=== PATIENT | female | born 1955 | race Caucasian/White ===

== ENCOUNTER 2022-05-22 07:30 | Inpatient (IN) | payer BC ==
[2022-05-21 12:57] LABS: BASOPHILS % (AUTO) 0.2 % (0.0-5.0); EOSINOPHILS % (AUTO) 1.3 % (0.0-8.0); HEMATOCRIT 43.3 % (36-48); LYMPHOCYTES % (AUTO) 27.7 % (21.0-51.0); MEAN CORPUSCULAR HEMOGLOBIN 27.2 pg (27.0-33.0); MEAN CORPUSCULAR HGB CONC 31.6 g/dL (32.0-36.0); MEAN CORPUSCULAR VOLUME 85.9 fL (79-99); MONOCYTES % (AUTO) 6.4 % (3.0-13.0); NEUTROPHILS % (AUTO) 64.1 % (40.0-77.0); PLATELET COUNT (AUTO) 166 K/uL (130-400); RED BLOOD CELL COUNT(AUTO) 5.04 MIL/uL (4.00-5.50); RED CELL DISTRIBUTION WIDTH 14.6 % (11.0-15.5); WHITE BLOOD COUNT (AUTO) 10.6 K/uL (4.8-10.8)
[2022-05-21 13:08] LABS: INR 1.23 (0.85-1.15); PROTHROMBIN TIME 13.3 SEC (9.6-11.6)
[2022-05-21 13:09] LABS: CREATININE 0.9 mg/dL (0.5-1.5); POTASSIUM 4.4 mmol/L (3.5-5.1)
[2022-05-21 13:10] LABS: PARTIAL THROMBOPLASTIN TIME 29.3 SEC (26.3-35.5)
[2022-05-22] VITALS (27 sets, daily range): BP systolic 117–166; BP diastolic 58–106
[~2022-05-22] VITALS: Ht 167.6 cm; Wt 116.9 kg
[~2022-05-22 07:30] MED LIST: 0.9%NACL 1000ML 1,000 ML IV SCH; ASCO100031 PO; ATOR10TA69 PO; CALC-866 PO; CETI5TAB12 PO; LISI10TA24 PO; METO25TA6 PO; MONT-39 PO; RIVA20TA PO; VITA1TAB22 PO; VITA400T9 PO; ZINC PO
[2022-05-22] MEDS ORDERED: LIDOCAINE HCL 2% VISCOUS 15 ML UDCUP ONE (08:23)
[2022-05-22] MEDS ORDERED: MIDAZOLAM HCL 1 MG/ML 2ML VIAL ONE (08:24)
[2022-05-22] MEDS ORDERED: FENTANYL CITRATE PF 50 MCG/1 ML 2ML VIAL ONE (08:24)
[2022-05-22] MEDS ORDERED: AMIODARONE 150MG VIAL 150 MG in DEXTROSE 5%-WATER 100 ML IV SCH (09:30)
[2022-05-22] MEDS ORDERED: AMIODARONE 360MG/200ML D5W(1MG/MIN) IV SCH ×2 (09:30)
[2022-05-22] MEDS ORDERED: PANTOPRAZOLE 40 MG/VIAL IVP ONE (10:30)
[2022-05-22] MEDS ORDERED: LIDOCAINE HCL-MPF 1% 2ML VIAL IV PRN (10:30)
[2022-05-22] MEDS ORDERED: POTASSIUM CHLORIDE 20MEQ/100ML 100 ML IV PRN (10:30)
[2022-05-22] MEDS ORDERED: POTASSIUM CHLORIDE 10% ELIXIR 20 MEQ/15 ML UDCUP PO PRN (10:30)
[2022-05-22] MEDS ORDERED: METOPROLOL TARTRATE 25 MG TAB PO ONE (10:30)
[2022-05-22] MEDS ORDERED: MAGNESIUM 2GM PREMIX 50ML 50 ML IV PRN (10:30)
[2022-05-22] MEDS: PANTOPRAZOLE 40 MG/VIAL IVP SCH (10:30)
[2022-05-22] MEDS: METOPROLOL TARTRATE 25 MG TAB PO SCH ×2 (14:00→20:15)
[2022-05-22 15:53] LABS: HEMATOCRIT 42.2 % (36-48); MEAN CORPUSCULAR HEMOGLOBIN 27.1 pg (27.0-33.0); MEAN CORPUSCULAR HGB CONC 31.8 g/dL (32.0-36.0); MEAN CORPUSCULAR VOLUME 85.4 fL (79-99); RED BLOOD CELL COUNT(AUTO) 4.94 MIL/uL (4.00-5.50); RED CELL DISTRIBUTION WIDTH 14.5 % (11.0-15.5); WHITE BLOOD COUNT (AUTO) 10.9 K/uL (4.8-10.8)
[2022-05-22 16:06] LABS: CREATININE 0.9 mg/dL (0.5-1.5); POTASSIUM 4.3 mmol/L (3.5-5.1)
[2022-05-22 16:07] LABS: HEMOGLOBIN A1C 6.8 % (4.0-6.0)
[2022-05-22 16:10] LABS: ALBUMIN 3.3 g/dL (3.5-5.0); MAGNESIUM 1.9 mg/dL (1.80-2.40); TOTAL PROTEIN, SERUM 6.4 g/dL (6.0-8.3)
[2022-05-22] MEDS: AMIODARONE 540 MG/D5W 300ML (0.5MG/MIN) IV SCH ×2 (16:20)
[2022-05-22] MEDS ORDERED: RIVAROXABAN 20 MG TABLET ONE (18:35)
[2022-05-22] MEDS: RIVAROXABAN 20 MG TABLET PO SCH (18:36)
[2022-05-22] MEDS: MONTELUKAST SODIUM 10 MG TAB PO SCH (20:14)
[2022-05-22] MEDS: ATORVASTATIN 10 MG TABLET PO SCH (20:14)
[2022-05-22] MEDS: LISINOPRIL 10 MG TABLET PO SCH (20:15)
[2022-05-23 04:24] VITALS: BP 138/94
[2022-05-23 08:00] VITALS: BP 131/90
[2022-05-23] MEDS: FUROSEMIDE 40MG VIAL IV SCH ×2 (09:31→21:09)
[2022-05-23] MEDS: METOPROLOL TARTRATE 25 MG TAB PO SCH ×2 (09:31→21:09)
[2022-05-23] MEDS: KCL 20 MEQ ERTAB PO SCH ×2 (09:32→21:08)
[2022-05-23] MEDS: PANTOPRAZOLE 40 MG/VIAL IVP SCH (09:33)
[2022-05-23] MEDS: AMIODARONE 200 MG TABLET PO SCH ×2 (09:33→21:09)
[2022-05-23 11:01] LABS: BASOPHILS % (AUTO) 0.3 % (0.0-5.0); HEMATOCRIT 44.5 % (36-48); LYMPHOCYTES % (AUTO) 25.4 % (21.0-51.0); MEAN CORPUSCULAR HEMOGLOBIN 27.4 pg (27.0-33.0); MEAN CORPUSCULAR HGB CONC 31.9 g/dL (32.0-36.0); MEAN CORPUSCULAR VOLUME 85.7 fL (79-99); MONOCYTES % (AUTO) 7.4 % (3.0-13.0); NEUTROPHILS % (AUTO) 65.6 % (40.0-77.0); PLATELET COUNT (AUTO) 169 K/uL (130-400); RED BLOOD CELL COUNT(AUTO) 5.19 MIL/uL (4.00-5.50); RED CELL DISTRIBUTION WIDTH 14.5 % (11.0-15.5); WHITE BLOOD COUNT (AUTO) 11.7 K/uL (4.8-10.8)
[2022-05-23 11:14] LABS: POTASSIUM 4.2 mmol/L (3.5-5.1)
[2022-05-23 11:19] LABS: ALBUMIN 3.4 g/dL (3.5-5.0); TOTAL PROTEIN, SERUM 6.7 g/dL (6.0-8.3)
[2022-05-23] MEDS: INSULIN HUMULIN R 100 UNIT/ML 3ML SQ SCH ×3 (11:30→20:57)
[2022-05-23 11:54] VITALS: BP 130/93
[2022-05-23 16:00] VITALS: BP 136/83
[2022-05-23 19:33] VITALS: BP 116/74
[2022-05-23] MEDS: LISINOPRIL 10 MG TABLET PO SCH (21:08)
[2022-05-23] MEDS: ATORVASTATIN 10 MG TABLET PO SCH (21:08)
[2022-05-23] MEDS: MONTELUKAST SODIUM 10 MG TAB PO SCH (21:09)
[2022-05-23] MEDS: RIVAROXABAN 20 MG TABLET PO SCH (21:09)
[2022-05-23 23:12] VITALS: BP 106/80
[2022-05-24] VITALS (21 sets, daily range): BP systolic 100–142; BP diastolic 49–98
[2022-05-24 03:35] LABS: HEMATOCRIT 41.9 % (36-48); MEAN CORPUSCULAR HGB CONC 31.7 g/dL (32.0-36.0); MEAN CORPUSCULAR VOLUME 85.2 fL (79-99); RED BLOOD CELL COUNT(AUTO) 4.92 MIL/uL (4.00-5.50); RED CELL DISTRIBUTION WIDTH 14.6 % (11.0-15.5); WHITE BLOOD COUNT (AUTO) 10.2 K/uL (4.8-10.8)
[2022-05-24 03:45] LABS: CREATININE 0.9 mg/dL (0.5-1.5); MAGNESIUM 1.8 mg/dL (1.80-2.40); POTASSIUM 3.7 mmol/L (3.5-5.1)
[2022-05-24] MEDS: INSULIN HUMULIN R 100 UNIT/ML 3ML SQ SCH ×4 (07:24→20:41)
[2022-05-24 07:32] LABS: APPEARANCE,URINE CLOUDY (CLEAR); BILIRUBIN,URINE NEGATIVE (NEGATIVE); COLOR,URINE YELLOW (YELLOW); GLUCOSE, URINE (UA) NEGATIVE (NEGATIVE); KETONES,URINE NEGATIVE (NEGATIVE); LEUKOCYTE ESTERASE ,URINE NEGATIVE Leu/uL (NEGATIVE); NITRATE,URINE NEGATIVE (NEGATIVE); OCCULT BLOOD,URINE NEGATIVE (NEGATIVE); PH,URINE 5.5 (5.0-8.0); PROTEIN,URINE NEGATIVE (NEGATIVE); UROBILINOGEN,URINE 0.2 mg/dL (0.2-1.0)
[2022-05-24 08:08] LABS: MUCUS,URINE RARE LPF (None Seen); RBC,URINE 0-1 /HPF (0-1); SQUAMOUS EPITHELIAL CELL,UR MANY /HPF (0-2)
[2022-05-24] MEDS ORDERED: PROPOFOL 10 MG/ML 20ML VIAL IV ONE ×2 (08:18)
[2022-05-24] MEDS ORDERED: PHENYLEPHRINE HCL 10 MG/ML 1ML VIAL IV ONE (08:19)
[2022-05-24] MEDS ORDERED: LIDOCAINE PF 100MG/5ML (2%) SYRINGE 5ML ONE (08:23)
[2022-05-24] MEDS ORDERED: SUCCINYLCHOLINE 200MG/10ML SYR ONE (08:23)
[2022-05-24] MEDS ORDERED: AMIODARONE 900MG VIAL 540 MG in DEXTROSE 5%-WATER 300 ML IV SCH (09:00)
[2022-05-24] MEDS ORDERED: AMIODARONE 900MG VIAL 360 MG in DEXTROSE 5%-WATER 200 ML IV SCH (09:00)
[2022-05-24] MEDS: FUROSEMIDE 40MG VIAL IV SCH ×2 (09:34→20:39)
[2022-05-24] MEDS: METOPROLOL TARTRATE 25 MG TAB PO SCH ×2 (09:34→20:40)
[2022-05-24] MEDS: PANTOPRAZOLE 40 MG/VIAL IVP SCH (09:34)
[2022-05-24] MEDS: KCL 20 MEQ ERTAB PO SCH ×2 (09:36→20:40)
[2022-05-24] MEDS: AMIODARONE 540 MG/D5W 300ML (0.5MG/MIN) IV SCH ×2 (16:27)
[2022-05-24] MEDS: ATORVASTATIN 10 MG TABLET PO SCH (20:40)
[2022-05-24] MEDS: LISINOPRIL 10 MG TABLET PO SCH (20:41)
[2022-05-24] MEDS: MONTELUKAST SODIUM 10 MG TAB PO SCH (20:41)
[2022-05-24] MEDS: RIVAROXABAN 20 MG TABLET PO SCH (20:41)
[2022-05-24 23:24] LABS: MAGNESIUM 2.1 mg/dL (1.80-2.40); POTASSIUM 3.8 mmol/L (3.5-5.1)
[2022-05-25 00:06] VITALS: BP 117/82
[2022-05-25] MEDS: KCL 20 MEQ ERTAB PO SCH ×3 (00:19→20:15)
[2022-05-25] MEDS: KCL 20 MEQ ERTAB PO PRN ×3 (00:19→08:35)
[2022-05-25 03:06] VITALS: BP 103/49
[2022-05-25 04:05] LABS: HEMATOCRIT 41.8 % (36-48); MEAN CORPUSCULAR HEMOGLOBIN 27.6 pg (27.0-33.0); MEAN CORPUSCULAR HGB CONC 32.1 g/dL (32.0-36.0); MEAN CORPUSCULAR VOLUME 86.2 fL (79-99); RED BLOOD CELL COUNT(AUTO) 4.85 MIL/uL (4.00-5.50); RED CELL DISTRIBUTION WIDTH 14.5 % (11.0-15.5); WHITE BLOOD COUNT (AUTO) 11.5 K/uL (4.8-10.8)
[2022-05-25 04:31] LABS: ALBUMIN 3.1 g/dL (3.5-5.0); BILIRUBIN,DIRECT 0.2 mg/dL (0.0-0.3); MAGNESIUM 2.1 mg/dL (1.80-2.40); POTASSIUM 3.8 mmol/L (3.5-5.1); THYROID STIMULATING HORMONE 3.48 uIU/mL (0.36-3.74); TOTAL PROTEIN, SERUM 6.4 g/dL (6.0-8.3)
[2022-05-25] MEDS: INSULIN HUMULIN R 100 UNIT/ML 3ML SQ SCH ×2 (05:28→11:30)
[2022-05-25 07:15] VITALS: BP 118/79
[2022-05-25] MEDS: PANTOPRAZOLE 40 MG/VIAL IVP SCH (08:34)
[2022-05-25] MEDS: FUROSEMIDE 40MG VIAL IV SCH ×2 (08:34→20:14)
[2022-05-25] MEDS: METOPROLOL TARTRATE 25 MG TAB PO SCH ×2 (08:37→20:15)
[2022-05-25] MEDS: AMIODARONE 540 MG/D5W 300ML (0.5MG/MIN) IV SCH ×2 (11:05)
[2022-05-25 12:00] VITALS: BP 117/87
[2022-05-25 16:00] VITALS: BP 111/61
[2022-05-25 19:06] VITALS: BP 135/74
[2022-05-25] MEDS: ATORVASTATIN 10 MG TABLET PO SCH (20:15)
[2022-05-25] MEDS: MONTELUKAST SODIUM 10 MG TAB PO SCH (20:15)
[2022-05-25] MEDS: LISINOPRIL 10 MG TABLET PO SCH (20:15)
[2022-05-25] MEDS: RIVAROXABAN 20 MG TABLET PO SCH (20:16)
[2022-05-26 00:06] VITALS: BP_SYST 124; BP_DIAS 59; BP_DIAS 68
[2022-05-26 03:43] LABS: HEMATOCRIT 42.9 % (36-48); MEAN CORPUSCULAR HEMOGLOBIN 27.1 pg (27.0-33.0); MEAN CORPUSCULAR HGB CONC 31.9 g/dL (32.0-36.0); MEAN CORPUSCULAR VOLUME 84.8 fL (79-99); RED BLOOD CELL COUNT(AUTO) 5.06 MIL/uL (4.00-5.50); RED CELL DISTRIBUTION WIDTH 14.8 % (11.0-15.5); WHITE BLOOD COUNT (AUTO) 13.1 K/uL (4.8-10.8)
[2022-05-26] MEDS: AMIODARONE 540 MG/D5W 300ML (0.5MG/MIN) IV SCH ×2 (03:45)
[2022-05-26 03:54] LABS: CREATININE 0.9 mg/dL (0.5-1.5); MAGNESIUM 2.1 mg/dL (1.80-2.40); POTASSIUM 3.9 mmol/L (3.5-5.1)
[2022-05-26] MEDS: FUROSEMIDE 40MG VIAL IV SCH (08:00)
[2022-05-26 08:41] VITALS: BP 133/93
[2022-05-26] MEDS: KCL 20 MEQ ERTAB PO SCH ×2 (09:53→20:23)
[2022-05-26] MEDS: METOPROLOL TARTRATE 25 MG TAB PO SCH ×2 (09:53→20:23)
[2022-05-26] MEDS: FUROSEMIDE 40 MG TABLET PO SCH ×2 (09:53→17:11)
[2022-05-26] MEDS: PANTOPRAZOLE 40 MG/VIAL IVP SCH (09:53)
[2022-05-26] MEDS: AMIODARONE 200 MG TABLET PO SCH ×2 (10:37→20:22)
[2022-05-26 12:06] VITALS: BP 112/71
[2022-05-26 16:48] VITALS: BP 137/72
[2022-05-26 19:06] VITALS: BP 120/91
[2022-05-26] MEDS: MONTELUKAST SODIUM 10 MG TAB PO SCH (20:22)
[2022-05-26] MEDS: LISINOPRIL 10 MG TABLET PO SCH (20:22)
[2022-05-26] MEDS: RIVAROXABAN 20 MG TABLET PO SCH (20:22)
[2022-05-26] MEDS: ATORVASTATIN 10 MG TABLET PO SCH (20:22)
[2022-05-27 00:06] VITALS: BP 111/66
[2022-05-27 01:46] LABS: APPEARANCE,URINE CLEAR (CLEAR); BILIRUBIN,URINE NEGATIVE (NEGATIVE); COLOR,URINE YELLOW (YELLOW); GLUCOSE, URINE (UA) NEGATIVE (NEGATIVE); KETONES,URINE NEGATIVE (NEGATIVE); LEUKOCYTE ESTERASE ,URINE NEGATIVE Leu/uL (NEGATIVE); NITRATE,URINE NEGATIVE (NEGATIVE); OCCULT BLOOD,URINE NEGATIVE (NEGATIVE); PH,URINE 5.5 (5.0-8.0); PROTEIN,URINE NEGATIVE (NEGATIVE); UROBILINOGEN,URINE 0.2 mg/dL (0.2-1.0)
[2022-05-27 03:06] VITALS: BP 131/76
[2022-05-27 08:09] LABS: BASOPHILS % (AUTO) 0.4 % (0.0-5.0); EOSINOPHILS % (AUTO) 2.5 % (0.0-8.0); HEMATOCRIT 45.1 % (36-48); LYMPHOCYTES % (AUTO) 31.8 % (21.0-51.0); MEAN CORPUSCULAR HEMOGLOBIN 27.2 pg (27.0-33.0); MEAN CORPUSCULAR HGB CONC 32.4 g/dL (32.0-36.0); MONOCYTES % (AUTO) 8.1 % (3.0-13.0); NEUTROPHILS % (AUTO) 56.9 % (40.0-77.0); PLATELET COUNT (AUTO) 170 K/uL (130-400); RED BLOOD CELL COUNT(AUTO) 5.37 MIL/uL (4.00-5.50); RED CELL DISTRIBUTION WIDTH 14.9 % (11.0-15.5); WHITE BLOOD COUNT (AUTO) 9.9 K/uL (4.8-10.8)
[2022-05-27 08:16] VITALS: BP 111/78
[2022-05-27 08:50] LABS: CREATININE 0.9 mg/dL (0.5-1.5); POTASSIUM 4.1 mmol/L (3.5-5.1)
[2022-05-27 08:54] LABS: ALBUMIN 3.2 g/dL (3.5-5.0); TOTAL PROTEIN, SERUM 6.6 g/dL (6.0-8.3)
[2022-05-27] MEDS: METOPROLOL TARTRATE 25 MG TAB PO SCH (09:08)
[2022-05-27] MEDS: AMIODARONE 200 MG TABLET PO SCH (09:08)
[2022-05-27] MEDS: PANTOPRAZOLE 40 MG/VIAL IVP SCH (09:09)
[2022-05-27] MEDS: KCL 20 MEQ ERTAB PO SCH (09:09)
[2022-05-27] MEDS: FUROSEMIDE 40 MG TABLET PO SCH (09:09)
[2022-05-27] MEDS ORDERED: AMIO200T44 PO (09:58)
[2022-05-27] MEDS ORDERED: RIVA20TA PO (09:58)
[2022-05-27] MEDS ORDERED: METO25 PO (09:58)
[2022-05-27] MEDS ORDERED: FURO40TA7 PO (09:58)
[2022-05-27] MEDS ORDERED: POTA-192 PO (09:58)
[2022-05-27 12:31] VITALS: BP 96/56
== END 2022-05-27 15:10 | disposition home or self-care (01) | DRG 291 ==
LOC: DAH 07:30 → DAHIP 07:31 → DAH 07:31 → 2AH 16:00
PROVIDERS: ADMIT Hospitalist; ATTEND Hospitalist
PROC: 5A2204Z Restoration of Cardiac Rhythm, Single (ICD-10-PCS; principal; 2022-05-24)
DX: I11.0 Hypertensive heart disease with heart failure (principal); I50.21 Acute systolic (congestive) heart failure; Z68.41 Body mass index [BMI] 40.0-44.9, adult; I48.0 Paroxysmal atrial fibrillation; Z20.822 Contact with and (suspected) exposure to COVID-19; E66.01 Morbid (severe) obesity due to excess calories; I34.0 Nonrheumatic mitral (valve) insufficiency; I36.1 Nonrheumatic tricuspid (valve) insufficiency; E11.9 Type 2 diabetes mellitus without complications; E78.5 Hyperlipidemia, unspecified; F32.A Depression, unspecified; G47.00 Insomnia, unspecified; I42.0 Dilated cardiomyopathy; Z79.01 Long term (current) use of anticoagulants; Z79.899 Other long term (current) drug therapy; Z90.710 Acquired absence of both cervix and uterus
CPT/HCPCS: 36415; 71045; 80048; 80053; 80061; 80076; 81001; 81003; 82948; 83036; 83735; 83880; 84132; 84145; 84439; 84443; 84481; 85025; 85027; 85610; 85651; 85730; 86140; 87635; 87804; 93005; 93306; 93312; 93356; 96374; 99152; A4606; C9113; G0378; J0282; J0330; J1815; J1940; J2001; J2250; J2370; J2704; J3010; J3475; J7030; J7060

== ENCOUNTER → 2022-06-17 | Outpatient (CLI) | payer BC ==
[~2022-06-17] MED LIST changes: -0.9%NACL 1000ML 1,000 ML IV SCH; +AMIO200T44 PO; +FURO40TA7 PO; +METO25 PO; -METO25TA6 PO; +POTA-192 PO; +REGADENOSON 0.4 MG/5 ML PF SYG IVP ONE
== END | disposition home or self-care (01) ==
LOC: SHCH 08:35
PROVIDERS: ATTEND Student in an Organized Health Care Education/Training Program
DX: I50.9 Heart failure, unspecified (principal)
CPT/HCPCS: 78452; 96374; 93017; J2785; A9500 ×2

== ENCOUNTER → 2022-08-07 | Outpatient (CLI) | payer BC ==
[~2022-08-07] MED LIST changes: -REGADENOSON 0.4 MG/5 ML PF SYG IVP ONE
[2022-08-07 16:41] LABS: CREATININE 1.1 mg/dL (0.5-1.5)
== END | disposition home or self-care (01) ==
LOC: LAB 15:51
PROVIDERS: ATTEND Internal Medicine Cardiovascular Disease
DX: I48.0 Paroxysmal atrial fibrillation (principal)
CPT/HCPCS: 36415; 82565; 84520

== ENCOUNTER → 2022-08-23 | Outpatient (CLI) | payer BC ==
[~2022-08-23] MED LIST changes: +IOHEXOL 350 MG/ML 100ML INFUS..BTL IV ONE
== END | disposition home or self-care (01) ==
LOC: RAH 08:00
PROVIDERS: ATTEND Internal Medicine Cardiovascular Disease
DX: K76.89 Other specified diseases of liver (principal); I48.0 Paroxysmal atrial fibrillation
CPT/HCPCS: 71275; Q9967

== ENCOUNTER → 2022-08-24 | Outpatient (CLI) | payer BC ==
[~2022-08-24] MED LIST changes: -IOHEXOL 350 MG/ML 100ML INFUS..BTL IV ONE
== END | disposition home or self-care (01) ==
LOC: SHCH 07:54
PROVIDERS: ATTEND Student in an Organized Health Care Education/Training Program
DX: I50.9 Heart failure, unspecified (principal); I51.7 Cardiomegaly
CPT/HCPCS: 93306

== ENCOUNTER 2022-11-21 06:00 | Observation (INO) | payer BC ==
[2022-11-20 12:29] LABS: BASOPHILS # (AUTO) 0.02 K/uL (0.00-0.20); BASOPHILS % (AUTO) 0.2 % (0.0-5.0); EOSINOPHILS # (AUTO) 0.18 K/uL (0.00-0.70); EOSINOPHILS % (AUTO) 2.2 % (0.0-8.0); HEMATOCRIT 44.1 % (36-48); IMMATURE GRANULOCYTE ABSOLUTE 0.03 K/uL (0-1); LYMPHOCYTES # (AUTO) 2.3 K/uL (1.0-4.8); LYMPHOCYTES % (AUTO) 28.6 % (21.0-51.0); MEAN CORPUSCULAR HEMOGLOBIN 29.5 pg (27.0-33.0); MEAN CORPUSCULAR HGB CONC 32.2 g/dL (32.0-36.0); MEAN CORPUSCULAR VOLUME 91.7 fL (79-99); MONOCYTES # (AUTO) 0.7 K/uL (0.1-1.0); MONOCYTES % (AUTO) 8.6 % (3.0-13.0); NEUTROPHILS # (AUTO) 4.9 K/uL (1.8-7.7); PLATELET COUNT (AUTO) 185 K/uL (130-400); RED BLOOD CELL COUNT(AUTO) 4.81 MIL/uL (4.00-5.50); RED CELL DISTRIBUTION WIDTH 13.2 % (11.0-15.5); WHITE BLOOD COUNT (AUTO) 8.1 K/uL (4.8-10.8)
[2022-11-20 12:39] LABS: INR 1.06 (0.85-1.15); PROTHROMBIN TIME 12.3 SEC (9.6-11.6)
[2022-11-20 12:41] LABS: PARTIAL THROMBOPLASTIN TIME 33.1 SEC (26.3-35.5)
[2022-11-20 12:45] LABS: POTASSIUM 4.3 mmol/L (3.5-5.1)
[2022-11-20 14:07] VITALS: BP 171/75; PULSE 56; RESP 16
[~2022-11-21] VITALS: Ht 170.2 cm; Wt 128.3 kg
[2022-11-21] VITALS (21 sets, daily range): BP systolic 101–151; BP diastolic 54–83; PULSE 58–62; RESP 12–18; O2SAT 95–96
[~2022-11-21 06:00] MED LIST changes: -ASCO100031 PO; -ATOR10TA69 PO; -CALC-866 PO; -CETI5TAB12 PO; -VITA1TAB22 PO; -VITA400T9 PO; -ZINC PO
[2022-11-21] MEDS ORDERED: 0.9%NACL 1000ML 1,000 ML IV ONE ×2 (06:36→07:01)
[2022-11-21] MEDS ORDERED: LIDOCAINE PF 100MG/5ML (2%) SYRINGE 5ML ONE (06:50)
[2022-11-21] MEDS ORDERED: MIDAZOLAM HCL 1 MG/ML 2ML VIAL ONE (06:50)
[2022-11-21] MEDS ORDERED: PROPOFOL 10 MG/ML 20ML VIAL IV ONE (06:51)
[2022-11-21] MEDS ORDERED: FENTANYL CITRATE PF 50 MCG/1 ML 5ML AMP IV ONE (06:51)
[2022-11-21] MEDS ORDERED: ROCURONIUM 10MG/1ML SYR 10 MG/ML ML ONE (06:51)
[2022-11-21] MEDS ORDERED: PHENYLEPHRINE HCL 10 MG/ML 1ML VIAL IV ONE (06:53)
[2022-11-21] MEDS ORDERED: GLYCOPYRROLATE 1 MG/5 ML SYRINGE ONE (06:53)
[2022-11-21] MEDS ORDERED: EPHEDRINE SULFATE 50 MG/ML AMPULE ONE (06:54)
[2022-11-21] MEDS ORDERED: NEOSTIGMINE 5MG/5ML SYR IV ONE (06:54)
[2022-11-21] MEDS ORDERED: LIDOCAINE HCL 1% MDV 50ML VIAL ONE (07:16)
[2022-11-21] MEDS ORDERED: HEPARIN 10,000 UNIT/10ML (1,000 UNIT/ML) VIAL ONE ×3 (07:16→09:40)
[2022-11-21] MEDS ORDERED: SUGAMMADEX SODIUM 200 MG/2 ML VIAL IV ONE (09:41)
[2022-11-21] MEDS ORDERED: PROTAMINE SULFATE 10 MG/ML 25ML VIAL IV ONE (11:37)
[2022-11-21] MEDS: SUCRALFATE 1 GM TABLET PO SCH ×2 (15:11→21:14)
[2022-11-21] MEDS: PANTOPRAZOLE 40 MG TAB DR PO SCH (15:12)
[2022-11-21] MEDS: FUROSEMIDE 40 MG TABLET PO SCH (15:49)
[2022-11-21] MEDS ORDERED: LISINOPRIL 10 MG TABLET PO SCH (21:00)
[2022-11-21] MEDS ORDERED: MONTELUKAST SODIUM 10 MG TAB PO SCH (21:00)
[2022-11-21] MEDS ORDERED: RIVAROXABAN 20 MG TABLET PO SCH (21:00)
[2022-11-21] MEDS: KCL 20 MEQ ERTAB PO SCH (21:13)
[2022-11-21] MEDS: METOPROLOL TARTRATE 25 MG TAB PO SCH (21:15)
[2022-11-22] VITALS: BP 131/74; PULSE 65; RESP 18
[2022-11-22] MEDS: SUCRALFATE 1 GM TABLET PO SCH ×2 (02:04→09:05)
[2022-11-22 04:00] VITALS: BP 144/91; PULSE 69; RESP 20
[2022-11-22 06:48] VITALS: BP 147/90; PULSE 64; RESP 18
[2022-11-22 08:00] VITALS: O2SAT 95
[2022-11-22 08:05] LABS: BASOPHILS # (AUTO) 0.02 K/uL (0.00-0.20); BASOPHILS % (AUTO) 0.1 % (0.0-5.0); HEMATOCRIT 38.7 % (36-48); IMMATURE GRANULOCYTE ABSOLUTE 0.06 K/uL (0-1); LYMPHOCYTES % (AUTO) 7.5 % (21.0-51.0); MEAN CORPUSCULAR HEMOGLOBIN 29.4 pg (27.0-33.0); MEAN CORPUSCULAR VOLUME 91.7 fL (79-99); MONOCYTES % (AUTO) 7.2 % (3.0-13.0); NEUTROPHILS # (AUTO) 11.8 K/uL (1.8-7.7); NEUTROPHILS % (AUTO) 84.8 % (40.0-77.0); PLATELET COUNT (AUTO) 171 K/uL (130-400); RED BLOOD CELL COUNT(AUTO) 4.22 MIL/uL (4.00-5.50); RED CELL DISTRIBUTION WIDTH 13.6 % (11.0-15.5); WHITE BLOOD COUNT (AUTO) 13.9 K/uL (4.8-10.8)
[2022-11-22 08:27] LABS: CREATININE 0.9 mg/dL (0.5-1.5); MAGNESIUM 2.1 mg/dL (1.80-2.40); POTASSIUM 4.4 mmol/L (3.5-5.1)
[2022-11-22] MEDS ORDERED: SUCR1ORA15 PO (08:47)
[2022-11-22] MEDS ORDERED: PANT40TA PO (08:47)
[2022-11-22] MEDS ORDERED: POTA-192 PO (08:47)
[2022-11-22] MEDS ORDERED: FURO40TA7 PO (08:47)
[2022-11-22] MEDS ORDERED: PANTOPRAZOLE 40 MG TAB DR PO SCH (09:00)
[2022-11-22] MEDS ORDERED: AMIODARONE 200 MG TABLET PO SCH (09:00)
[2022-11-22] MEDS: METOPROLOL TARTRATE 25 MG TAB PO SCH (09:01)
[2022-11-22] MEDS: FUROSEMIDE 40 MG TABLET PO SCH (09:01)
[2022-11-22] MEDS: KCL 20 MEQ ERTAB PO SCH (09:02)
[2022-11-22] MEDS: PANTOPRAZOLE 40 MG TAB DR PO SCH (11:23)
[2022-11-22 12:08] VITALS: BP 132/67; PULSE 66; RESP 18
== END 2022-11-22 14:11 | disposition home or self-care (01) ==
LOC: DAH 06:00 → DAHIP 06:01 → 2AH 14:20
PROVIDERS: ADMIT Internal Medicine Cardiovascular Disease; ATTEND Internal Medicine Cardiovascular Disease
DX: I48.0 Paroxysmal atrial fibrillation (principal); Z20.822 Contact with and (suspected) exposure to COVID-19; D72.829 Elevated white blood cell count, unspecified; I10 Essential (primary) hypertension; E66.9 Obesity, unspecified; G47.10 Hypersomnia, unspecified; R06.83 Snoring; Z79.899 Other long term (current) drug therapy; Z90.710 Acquired absence of both cervix and uterus; Z98.891 History of uterine scar from previous surgery; Z68.41 Body mass index [BMI] 40.0-44.9, adult
CPT/HCPCS: 80048 ×2; 85025 ×2; 85610; 85730; 87426; 36415 ×2; 93005 ×2; 93622; 93656; 83735; A4344; C1894 ×3; C1732 ×2; C1893; A4215 ×2; C1731; A4649 ×2; G0378 ×26; A4663; J3010; J3490 ×3; J2710; J7030 ×2; J2720; J2001; J1644 ×4; J2250; J2704; J2371; A4223; A4222; A4221